=== PATIENT | male | born 1965 | race Caucasian/White ===

== ENCOUNTER 2020-01-09 09:31 | Emergency (ER) | payer OTHER, SELFPAY ==
--- NOTE | ~2020-01-09 | XR_ITS ---
EXAMINATION: XR hand RT min 3V INDICATION: Right hand pain, initial TECHNIQUE: Three views of the right hand are obtained. COMPARISON: None available FINDINGS: There is an acute, traumatic, closed, comminuted shaft fracture of the fourth metacarpal. T he joint spaces are unremarkable. No additional acute osseous abnormality is identified. Soft tissue swelling surrounds the fracture. IMPRESSION: 1. Acute, comminuted shaft fracture of the fourth metacarpal. Reviewed, dictated and finalized at location B.
[2020-01-09 10:00] VITALS: BP 150/94; PULSE 68; RESP 20; TEMP 37.1; O2SAT 98
--- NOTE | 2020-01-09 10:06 | ED.UPPEXIN ---
HPI - Extremity Injury (Upper) General Chief Complaint: Extremity Injury, Upper Stated Complaint: injured hand at work Source: patient Mode of arrival: ambulatory Limitations: no limitations History of Present Illness HPI narrative: pt was operating some sort of power tool and drilling into a wall, the power tool hit something and twisted his hand/arm. He has pain in the right hand area. complaint: injury to: right Onset (ago): minute(s) Other injuries: none Handedness: right Place: work Severity: severe Relieving factors: none Exacerbating factors: none Context: other (as above) Associated symptoms: denies other symptoms Related Data Home Medications Medication Instructions Recorded Confirmed No Home Medications 01/09/20 01/09/20 Allergies Allergy/AdvReac Type Severity Reaction Status Date / Time No Known Allergies Allergy Unknown Unverified 05/29/08 15:28 Review of Systems Review of Systems: All systems reviewed & are unremarkable except as noted in HPI and below PMFSH Social History Social History (Updated 01/09/20 @ 10:09 by Cait Lockhart MD) Smoking status: Never smoker Alcohol intake: never Substance use: never Exam Const: General: no acute distress and alert Orientation/consciousness: patient oriented x3 HENMT: Head: normal to inspection Neck: Neck: normal visual inspection Chest: Chest palpation & inspection: normal inspection of the chest Resp: Effort & Inspection: normal respiratory effort Skin: General skin exam: normal color Neuro: General: patient oriented x3, moves all extremities and no focal motor deficits Extrem: Other: swelling to dorsal hand over 3-5th MCP area, wrist full ROM, able to move fingers, but painful. No skin openings at all. fingers mostly non-tender non-swollen. Shoulder and remainder of forearm/arm is normal. no other injury Psych: Appearance: grossly normal Mental Status: mental status grossly normal Thought content: Yes Normal thought content present Course Vital Signs Vital signs: Vital Signs Temperature 37.1 C 01/09/20 10:00 Pulse Rate 68 01/09/20 10:00 Respiratory Rate 01/09/20 10:00 Blood Pressure 150/94 H 01/09/20 10:00 Pulse Oximetry 98 01/09/20 10:00 Temperature 37.1 C 01/09/20 10:00 Pulse Rate 68 01/09/20 10:00 Respiratory Rate 20 09/09/20 10:00 Blood Pressure 150/94 H 01/09/20 10:00 Pulse Oximetry 98 01/09/20 10:00 Discharge Plan Discharge Clinical Impression: Fracture of hand Patient Disposition: Home, Self-Care Condition: Stable Instructions: Antibiotic Form Additional Instructions: We have an appointment for you on 01/14 at [address] Valiente, his office number is [phone]. [id number] [id number] Prescriptions: No Action No Home Medications RF: 0 Follow-up/Referrals: Sukumar Amezcua MD [Primary Care Provider] - Time of Disposition: 11:59
--- NOTE | 2020-01-09 11:43 | PC.NURSE ---
hand ball OCL splint applied to right hand. neuro-circ checks to distal right fingers x5 wnl after application of splint. right hand ^ and ice in place
--- NOTE | 2020-01-09 11:45 | PC.NURSE ---
dr. thomas office contacted fro potential follow up. appointment made for pt, 01/14 at 3pm
[2020-01-09 12:02] VITALS: BP 135/66; PULSE 71; RESP 16; TEMP 36.7; O2SAT 99
== END 2020-01-09 12:19 | disposition home or self-care (01) ==
PROVIDERS: Emergency Provider Emergency Medicine; PCP Family Medicine
DX: M79.641 Pain in right hand (principal); W22.8XXA Striking against or struck by other objects, initial encounter
CPT/HCPCS: 29125; 73130; 99282; 99284

== ENCOUNTER 2020-02-27 13:58 | Outpatient (RCR) | payer OTHER, SELFPAY ==
--- NOTE | 2020-02-27 16:26 | OTOPEVAL ---
Thank you for referring Cody Sanchez to [facility].? The patient is scheduled to be seen for therapy? ____x/week for ___ weeks. Please review, sign, date and return this plan of care JHONY. I agree with and certify that the following plan of care is medically necessary. Referring Physician Date Admitting Provider: Attending Provider: Carlos Valiente MD Referring Provider: *OT Outpatient Evaluation Start: 02/27/20 07:41 Freq: Status: Active Protocol: Document 02/27/20 14:02 [facility] (Rec: 02/27/20 14:57 [facility] [id number]) Therapy Assessment Status Assessment Status Assessment Status Evaluation Outpatient Past Medical History Past Medical History No Past Medical/Surgical History Patient/Family Denies Significant Past Medical/ Surgical History Evaluation Information Problem Diagnosis decreased strength & ROM Onset 01/09/20 Cause R 4th metacarpal fracture Subjective Information Patient reports that he broke Query Text:As Reported By Patient/ the right finger (metacarpal) Family on 01/09/20 while at work. He was using a power drill and hit some rebar and it twisted his hand. Patient reports that he is unable to grab a pot of coffee and is unable to make a fist without pain. Patient reports pain across his IP's with gripping as well as at the base of 1st CMC. Patient works for the [employer] which entails shoveling, driving equipments, lifting, etc. Quick DASH score: 34.1% Diagnostic Tests X-Rays For This Problem Yes Prior Level of Function Activity Level (Last 3 Months) Hand Dominance Right Activity of Daily Living Ability Independent Indoor/Home Mobility Independent Community Mobility Independent Stairs Ability Independent Functional Cognition (Planning, Shopping Independent , Taking Medications) Cooking Yes Cleaning Yes Laundry Yes Shopping Yes Driving Yes Home Setting Home Type House Mobility Assistive Devices (Used Last 3 None Months) Pain Assessment Timing of Pain Assessment Timing of Pain Assessment Assessment Pain Scale Pain Scale Used
--- NOTE | 2020-03-05 14:13 | PCOTNOTE ---
OCCUPATIONAL THERAPY UPDATE Subjective: Patient reports that his right hand is feeling much better. He feels that it is almost back to normal. Patient continues to work at his job. Patient reports occasional pain with pinching and grasping. 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 Patient has tolerated OT sessions with good skill. Patient reports and demonstrates independence with home exercise program. 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 Thanks, Alannah Sterling, OTR/L
== END 2020-03-24 14:48 | disposition home or self-care (01) ==
LOC: CHSOT 13:58
PROVIDERS: Visit Provider Plastic Surgery
DX: M25.641 Stiffness of right hand, not elsewhere classified (principal); S62.324D Displaced fracture of shaft of fourth metacarpal bone, right hand, subsequent encounter for fracture with routine healing
CPT/HCPCS: 97014; 97035; 97110; 97140; 97165; G0283

== ENCOUNTER 2023-11-17 08:27 | Day surgery (SDC) | payer OTHER, SELFPAY ==
[2023-11-02 13:04] VITALS: BMI 34.7
[2023-11-02 14:19] VITALS: BMI 34.5
[2023-11-17 09:38] VITALS: BP 132/95; PULSE 87; RESP 18; TEMP 37.6; O2SAT 99; BMI 33.3
--- NOTE | 2023-11-17 09:46 | P.PNAN_ITS ---
Anes - Initial Pre Proc Eval Procedure: Operation Date: 11/17/23 10:30 Proposed Procedures p Diagnostic Colonoscopy - Gregorio Escoto MD Date/Time: 11/17/23 09:46 Surgeon: Gregorio Escoto MD Pre Op Diagnosis: Family History of Colon Cancer Patient Data Age: 58 Gender: M Height: 1.7 m Weight: 96.7 kg Last Vital Signs Temp 37.6 C 11/17/23 09:38 Pulse 87 11/17/23 09:38 Resp 18 11/17/23 09:38 BP 132/95 H 11/17/23 09:38 Pulse Ox 99 11/17/23 09:38 O2 Del Method Room Air 11/17/23 09:38 Allergies Allergy/AdvReac Type Severity Reaction Status Date / Time No Known Allergies Allergy Unknown Verified 11/17/23 09:30 Home Medications Medication Instructions Recorded Confirmed Type lisinopril 20 mg tablet 20 mg PO DAILY #90 tabs 11/07/23 11/17/23 Rx Patient hx anesthesia problems: none Family hx anesthesia problems: none Results Review: All pre-operative results and documents have been reviewed as part of the pre- operative evaluation. [facility] Past Medical History Medical History (Updated 11/17/23 @ 09:47 by Harjit Ovalles MD) Acute non-recurrent maxillary sinusitis Family hx of colon cancer HTN (hypertension), benign Family History Family History Sibling Multiple sclerosis Social History Social History Social History: Caffeine- coffee Smoking status: Former smoker Smoking end date: 05/02/12 Alcohol intake: never Substance use: never Substance use type: does not use Lack of Transportation: No Lack of Food: Never True Current Housing: I Have Housing Difficulty Paying Gas/Electric Bills: No Difficulty Paying for Meds: No Currently Unemployed: No Education: High School Diploma/GED Difficulty w/ Childcare or Family Care: No Living arrangements: with family Spiritual care concerns: No Anes - Eval Final PreProcedure Day of Procedure 11/17/23 09:46 Patient weight: obese Heart: regular rate and rhythm Lungs: clear to auscultation Airway: Mallampati scale class II Neurological: alert and oriented Last oral intake: >/= 8 hours ASA classification: II Emergent: no Anesthetic plan: proceed Anesthesia type and monitoring: general GIVS and standard monitoring Results Review: All pre-operative results and documents have been reviewed as part of the pre- operative evaluation. Informed Consent: The patient's anesthetic plan and its attendant risks and benefits were discussed with the patient/family/POA. Questions were solicited and answers provided to the satisfaction of the patient/family/POA.
[2023-11-17] MEDS: LACTATED RINGERS 1,000 ML 150 ML IV CONT (09:53)
--- NOTE | 2023-11-17 10:25 | PM.HPGS ---
History of Present Illness History of Present Illness Consent: Risks, benefits, and alternatives have been discussed and questions answered. Patient agrees to proceed with procedure. Chief complaint: Family History of Colon Cancer Narrative: Cody Sanchez is a 58 year old male presents for screening colonoscopy. Patient's current weight appetite and bowel so are normal. Patient denies abdominal pain. He has had no bleeding. Family history is significant that his brother had colon cancer. Patient reports previous colonoscopy 15 years prior to this was unremarkable. Review of Systems Review of Systems: All systems reviewed & are unremarkable except as noted in HPI and below PMFSH Past Medical History Medical History (Updated 11/17/23 @ 09:47 by Harjit Ovalles MD) Acute non-recurrent maxillary sinusitis Family hx of colon cancer HTN (hypertension), benign Family History Family History Sibling Multiple sclerosis Social History Social History Social History: Caffeine- coffee Smoking status: Former smoker Smoking end date: 05/02/12 Alcohol intake: never Substance use: never Substance use type: does not use Lack of Transportation: No Lack of Food: Never True Current Housing: I Have Housing Difficulty Paying Gas/Electric Bills: No Difficulty Paying for Meds: No Currently Unemployed: No Education: High School Diploma/GED Difficulty w/ Childcare or Family Care: No Living arrangements: with family Spiritual care concerns: No Meds Home Medications and Allergies Home Medications Medication Instructions Recorded Confirmed Type lisinopril 20 mg tablet 20 mg PO DAILY #90 tabs 11/07/23 11/17/23 Rx Allergies Allergy/AdvReac Type Severity Reaction Status Date / Time No Known Allergies Allergy Unknown Verified 11/17/23 09:30 Vital Signs Vital Signs - 24 hr 11/17/23 09:38 Temperature 99.6 F Pulse Rate 87 Respiratory Rate 18 Blood Pressure 132/95 H Pulse Oximetry 99 Oxygen Delivery Room Air Exam Narrative: Physical exam reveals patient to be alert. Vital signs stable. HEENT exam is unremarkable. Patient is anicteric. Lungs are clear to auscultation and percussion. His without murmur or extra sounds. Abdomen bowel sounds are present soft nontender with no organomegaly. Digital external rectal exam normal. Assessment and Plan Assessment and plan (1) Family hx of colon cancer: Code(s): Z80.0 - Family history of malignant neoplasm of digestive organs Status: Acute Assessment and Plan: Patient's brother had colon cancer. For this reason surveillance colonoscopy recommended now and a 5 year interval
[2023-11-17 10:51] VITALS: BP 113/72; PULSE 70; RESP 16; O2SAT 98
--- NOTE | 2023-11-17 10:59 | WPDANESPN ---
Anes - Prog Note Post-Op Date/Time: 11/17/23 10:59 Cardiovascular status: normal Respiratory status: normal Airway patency: baseline Mental status: baseline Post-Op hydration status: normal Vital Signs: Last Vital Signs Temp 37.6 C 11/17/23 09:38 Pulse 87 11/17/23 09:38 Resp 18 11/17/23 09:38 BP 132/95 H 11/17/23 09:38 Pulse Ox 99 11/17/23 09:38 O2 Del Method Room Air 11/17/23 09:38 Pain Score (VAS): 0/10 I/O: Intake & Output 11/16/23 11/17/23 11/17/23 23:59 07:59 15:59 Intake Total 300 Balance 300 Patient Feedback: Patient satisfied with anesthetic care.
[2023-11-17 11:01] VITALS: BP 120/85; PULSE 65; RESP 20; O2SAT 97
[2023-11-17 11:11] VITALS: BP 114/82; PULSE 60; RESP 20; O2SAT 96
== END 2023-11-17 11:26 | disposition home or self-care (01) ==
PROVIDERS: PCP Family Medicine; Visit Provider Internal Medicine Gastroenterology
PROC: 0DJD8ZZ Inspection of Lower Intestinal Tract, Via Natural or Artificial Opening Endoscopic (ICD-10-PCS; CPT 45378; principal; 2023-11-17 10:30)
DX: Z80.0 Family history of malignant neoplasm of digestive organs (principal); K57.30 Diverticulosis of large intestine without perforation or abscess without bleeding; K64.8 Other hemorrhoids
CPT/HCPCS: 45378

== ENCOUNTER 2025-01-14 13:24 | Outpatient (CLI) | payer OTHER, SELFPAY | END 2025-01-14 13:25 | disposition home or self-care (01) | LOC: CHSAUDIO 13:26 | PROVIDERS: PCP Otolaryngology; Visit Provider Otolaryngology | DX: H93.13 Tinnitus, bilateral (principal); H90.3 Sensorineural hearing loss, bilateral | CPT/HCPCS: 92557; 92567 ==